=== PATIENT | male | born 1955 | race Caucasian/White ===

== ENCOUNTER 2017-10-03 08:06 | Day surgery (SDC) | payer MEDICARE, OTHER ==
[~2017-10-03 08:06] MED LIST: CEFAZOLIN 1 GM INJ; CEFAZOLIN 2 GM/50 ML (PMX) 50 ML IVPB; SOD CHLORIDE 0.9% 1,000 ML IV
[2017-10-03 08:55] LABS: ADD MAN DIFF? NO
[2017-10-03 08:58] LABS: BASOPHILS % 0.4 % (0.0-2.0); EOSINOPHILS # 0.1 10^3/ul (0.0-0.5); EOSINOPHILS % 1.2 % (0.0-7.0); HEMATOCRIT 47.8 % (42.0-52.0); LYMPHOCYTES # 1.9 10^3/ul (0.8-2.9); LYMPHOCYTES % 28.4 % (15.0-51.0); MEAN CORPUSCULAR HGB CONC 33.5 g/dl (32.0-37.0); MEAN CORPUSCULAR VOLUME 89.7 fl (82.0-101.0); MEAN PLATELET VOLUME 10.8 fl (7.4-10.4); MONOCYTE # 0.6 10^3/ul (0.3-0.9); MONOCYTES % 8.3 % (0.0-11.0); NEUTROPHIL # 4.1 10^3/ul (1.6-7.5); NEUTROPHILS % 61.3 % (39.0-77.0); PLATELET COUNT 169 10^3/UL (140-415); RED BLOOD COUNT 5.33 10^6/ul (4.70-6.10); RED CELL DISTRIBUTION WIDTH 12.2 % (11.5-14.5)
[2017-10-03 08:58] LABS: WHITE BLOOD COUNT 6.8 10^3/ul (4.8-10.8)
[2017-10-03 09:20] LABS: INR 1.04; PROTIME 13.7 Sec (11.9-14.9); PT RATIO 1.1
[2017-10-03 09:28] LABS: ALANINE AMINOTRANSFERASE 30 IU/L (13-69); ALBUMIN 4.4 g/dl (3.3-4.9); ALBUMIN/GLOBULIN RATIO 1.37; ALKALINE PHOSPHATASE 86 IU/L (42-121); ANION GAP 16 (8-16); ASPARTATE AMINO TRANSFERASE 23 IU/L (15-46); BILIRUBIN,INDIRECT 1.1 mg/dl (0-1.1); BILIRUBIN,TOTAL 1.1 mg/dl (0.2-1.3); CARBON DIOXIDE 25 mmol/L (21-31); CHLORIDE 107 mmol/L (97-110); GLUCOSE 104 mg/dl (70-220); TOTAL PROTEIN 7.6 g/dl (6.1-8.1)
[2017-10-03 09:33] LABS: BLOOD UREA NITROGEN 22 mg/dl (7-20); CALCIUM 9.1 mg/dl (8.4-10.2); CREATININE 0.79 mg/dl (0.61-1.24); POTASSIUM 3.9 mmol/L (3.5-5.1); SODIUM 144 mmol/L (135-144)
[2017-10-03] MEDS ORDERED: FENTAnyl 50 MCG/ML VIAL (09:53)
[2017-10-03] MEDS ORDERED: MIDAZOLAM 1 MG/ML 2 ML INJ (09:53)
[2017-10-03] MEDS: BUPIVACAINE 0.25% (MPF) 30 ML INJ (11:05)
[2017-10-03] MEDS: POLYMYXIN/BACITRACIN 1L IRRIG (11:05)
[2017-10-03] MEDS ORDERED: PROPOFOL 20 ML (11:33)
[2017-10-03] MEDS ORDERED: LIDOCAINE 100 MG SYRINGE (11:33)
[2017-10-03] MEDS ORDERED: LABETALOL HCL 20MG INJ IV (12:00)
[2017-10-03] MEDS ORDERED: KETOROLAC 30 MG INJ IV (12:00)
[2017-10-03] MEDS ORDERED: METOCLOPRAMIDE 10 MG INJ IV (12:00)
[2017-10-03] MEDS ORDERED: HYDROCODONE/APAP (5/325) TAB PO (12:00)
[2017-10-03] MEDS ORDERED: HYDROmorphONE (0.2 MG/ML) 10ML SYG IV ×2 (12:00)
[2017-10-03] MEDS ORDERED: MEPERIDINE 25 MG INJ IV (12:00)
[2017-10-03] MEDS ORDERED: DIPHENHYDRAMINE 50 MG INJ IV (12:00)
[2017-10-03] MEDS ORDERED: ONDANSETRON 4 MG INJ IV (12:00)
[2017-10-03] MEDS ORDERED: hydrALAzine 20 MG INJ IV (12:00)
[2017-10-03] MEDS ORDERED: FENTAnyl 50 MCG/ML VIAL IV ×2 (12:00)
== END 2017-10-03 13:05 | disposition home or self-care (01) ==
LOC: SDS 08:06
DX: K40.30 Unilateral inguinal hernia, with obstruction, without gangrene, not specified as recurrent (principal); I25.10 Atherosclerotic heart disease of native coronary artery without angina pectoris; E11.9 Type 2 diabetes mellitus without complications; I10 Essential (primary) hypertension; I25.2 Old myocardial infarction; Z86.73 Personal history of transient ischemic attack (TIA), and cerebral infarction without residual deficits
CPT/HCPCS: 49507; 71045; 80053; 82962; 85025; 85610; 85730; 88302